=== PATIENT | female | born 1980 ===

== ENCOUNTER 2017-04-30 08:51 | Outpatient (CLI) | payer OTHER | END 2017-04-30 09:14 | disposition home or self-care (01) | LOC: MAMO-SONO 08:51 | DX: Z80.3 Family history of malignant neoplasm of breast (principal); Z12.31 Encounter for screening mammogram for malignant neoplasm of breast ==

== ENCOUNTER 2017-11-03 05:50 | Day surgery (SDC) | payer OTHER ==
[~2017-11-03 05:50] MED LIST: ALLERGRA PO
== END 2017-11-03 15:26 | disposition home or self-care (01) ==
LOC: CIR.AMB 05:50
DX: N64.81 Ptosis of breast (principal); N64.82 Hypoplasia of breast